=== PATIENT | female | born 1950 | race Caucasian/White ===

== ENCOUNTER → 2020-04-14 | Outpatient (CLI) | payer SELFPAY ==
[2020-04-14 12:53] LABS: Synovial Fld Mononuclear WBC % 49.9 %; Synovial Fld Polynuclear WBC # 0.951 10^3/uL; Synovial Fld Polynuclear WBC % 50.1 %
[2020-04-14 12:55] LABS: AUTO B FLUID DILUENT BKGD CT WBC <0.1 RBC <0.01 (W<.1,R<.01); RBC /Synovial Fluid 0.004 10^6/uL (0); Source / Synovial Fluid LEFT KNEE
[2020-04-14 12:56] LABS: Appearance /Synovial Fluid Sl Cl (CLEAR); Color / Synovial Fluid Yellow (Pale Yellow)
[2020-04-14 14:22] LABS: Lymph 52 %; Neutrophil 48 % (0-25)
[2020-04-14 14:23] LABS: Body Fluid QC Type(s) BF2Q
[2020-04-18 12:00] LABS: Pathologist Comment Reviewed
== END | disposition home or self-care (01) ==
LOC: LABSPEC 11:24
PROVIDERS: PCP Family Medicine; Referring Provider Specialist; Visit Provider Specialist
DX: T84.84XA Pain due to internal orthopedic prosthetic devices, implants and grafts, initial encounter (principal)
CPT/HCPCS: 87015; 87070; 87075; 87101; 87116; 87205; 87206; 89050; 89051

== ENCOUNTER 2020-04-27 14:00 | Outpatient (RCR) | payer SELFPAY ==
--- NOTE | 2020-04-01 14:22 | HP.PTEVAL ---
Patient's Visit Information CANDIDO MERIDA is a 70 year old F referred to Physical Therapy by Dr. Harsha Mendoza MD with a diagnosis of R knee OA. Date of Evaluation: 04/01/20 Physical Therapist: VASU Espino - Visit Plan Frequency: 2x /Week Duration: 4-6 Weeks Plan: Pt wants to do a few sessions on land to decrease her R knee pain before she tries the water therapy. 2X/ week for 4-6 weeks for R knee and hip strengthening, gait training, R HC and HS stretching with HEP and modalities if needed. Pt may move to the AT setting when she is ready for core stability, R knee and hip strengthening, gait training, strairs with HEP - Subjective Pt come in in a wheelchair. SHe reports that she has osteoporosis. She saw her Dr and they thought that she should do therapy to get her muscles loose. She was taking 3 naproxen and 3 Alieve pills a day. If she does not take those meds then she gets worse. She normally uses the walker if she stays on the pills. He did an x-ray of the R knee and will do one on April 12. Right now she is not walking much at all... about from the toilet to the shower. She does not do stairs and she has ramps. She has not been down to the cellar this year yet. Only pain she has is when she walks and the pain moves around. Sometimes it is the R and sometimes is is the L. She has occ tingling....She is sleeping ok but can not sleep on her tummy cause it will make her knees hurt. - Pain R knee pain Pain Intensity (Out of 10): 0 Pain Intensity Range: 6 L knee pain Pain Intensity (Out of 10): 0 Pain Intensity Range: 0 - Objective Pt struggles with rolling over due to back pain and cant do a bridge due to back pain. R knee AROM -2 degrees to 110 degrees R knee flexion. L knee AROM 0 degrees extension to 120 degrees L knee flexion. MMT R knee flex 4-/5 (pain), extension 4-/5 ( pain), R hip abd 4-/5, R hip flex 3+/5. MMT L knee flex 4/5, extension 4/5, R hip abd 4/5, R hip flex 4/5. Gait: Pt only took a few steps from the wheel chair to the mat table as she did not have her walker and she had increase R knee pain. - Goals Goal 1:: I HEP Goal Time Frame: 4-6 Weeks Goal 2:: Be able to walk 100 feet with least restrictive device with less than 2/10 R knee pain Goal Time Frame: 4-6 Weeks Goal 3:: Increase R knee strength to 4/5 knee flexion and extension and R hip abd Goal Time Frame: 4-6 Weeks Goal 4:: Decrease R knee pain to 2/10 with gait Goal Time Frame: 4-6 Weeks - Rehabilitation Potential Rehabilitation Potential: Good - Anticipated Interventions Patient/Client Instruction: Educate patient on: Condition, Plan of Care For the Purpose of:: To decrease pain, To increase ROM, To improve nutrient delivery to tissue, To improve muscle performance and motor function, To improve ability to perform ADL's, To increase tolerance to activity/condition/position, To improve performance and independence with ADL's, To improve ability of physical actions for home/community/work/leisure, To improve gait and locomotor functions, To improve health of tissue, To decrease soft tissue restriction, To increase flexibility/ROM, To improve balance, To improve safety with gait Therapeutic Exercise to Include: Strength training, Flexibilty training, Gait and locomotor training, Passive ROM, Active ROM, Dynamic Lumbar Stabilization For the Purpose of:: To decrease pain, To increase ROM, To improve nutrient delivery to tissue, To improve muscle performance and motor function, To improve ability to perform ADL's, To increase tolerance to activity/condition/position, To improve performance and independence with ADL's, To decrease level of supervision to perform tasks, To improve gait and locomotor functions, To improve health of tissue, To increase flexibility/ROM Functional Training to Include: Gait training For the Purpose of:: To decrease pain, To decrease swelling/inflammation, To increase ROM, To improve nutrient delivery to tissue, To improve muscle performance and motor function, To improve ability to perform ADL's, To increase tolerance to activity/condition/position, To improve performance and independence with ADL's IF ES: Yes Thermo therapy (hot pack): Yes Ultrasound (thermal/non thermal): Yes For the Purpose of:: To decrease pain, To increase ROM, To improve nutrient delivery to tissue Thank you for the opportunity to evaluate your patient. For Medicare and Medicare HMO plans, please review the plan of care and approve it. It will need to be FAXED BACK to us at [phone] for Medicare purposes. For Medicare only, by signing this I certify the plan of care. Please let me know if there are questions or concerns regarding this plan of care. Physician Signature: Date:
--- NOTE | 2020-08-10 11:42 | HP.PT.NRP ---
CANDIDO MERIDA was seen in my office for initial evaluation on 04/01/20. The following Plan of Care was established for this patient: Initial Frequency: 2x /Week Initial Duration: 4-6 Weeks Patient/Client Instruction: Educate patient on: Condition, Plan of Care For the Purpose of:: To decrease pain, To increase ROM, To improve nutrient delivery to tissue, To improve muscle performance and motor function, To improve ability to perform ADL's, To increase tolerance to activity/condition/position, To improve performance and independence with ADL's, To improve ability of physical actions for home/community/work/leisure, To improve gait and locomotor functions, To improve health of tissue, To decrease soft tissue restriction, To increase flexibility/ROM, To improve balance, To improve safety with gait Therapeutic Exercise to Include: Strength training, Flexibilty training, Gait and locomotor training, Passive ROM, Active ROM, Dynamic Lumbar Stabilization For the Purpose of:: To decrease pain, To increase ROM, To improve nutrient delivery to tissue, To improve muscle performance and motor function, To improve ability to perform ADL's, To increase tolerance to activity/condition/position, To improve performance and independence with ADL's, To decrease level of supervision to perform tasks, To improve gait and locomotor functions, To improve health of tissue, To increase flexibility/ROM Functional Training to Include: Gait training For the Purpose of:: To decrease pain, To decrease swelling/inflammation, To increase ROM, To improve nutrient delivery to tissue, To improve muscle performance and motor function, To improve ability to perform ADL's, To increase tolerance to activity/condition/position, To improve performance and independence with ADL's IF ES: Yes Thermo therapy (hot pack): Yes Ultrasound (thermal/non thermal): Yes For the Purpose of:: To decrease pain, To increase ROM, To improve nutrient delivery to tissue This patient was last seen in our office 04/27/20. Pertinent comments regarding their Physical therapy will appear below: [facility] PT At this point I will be discontinuing this patient from physical therapy. I would be happy to see this patient again in the future if found appropriate by the physician. Thank you! Ginger Fitzgerald, MPT
== END 2020-04-27 19:00 | disposition home or self-care (01) ==
LOC: PT 14:00
PROVIDERS: PCP Family Medicine; Referring Provider Specialist; Visit Provider Specialist
DX: M17.11 Unilateral primary osteoarthritis, right knee (principal); E66.8 Other obesity; Z68.41 Body mass index [BMI] 40.0-44.9, adult
CPT/HCPCS: 97014; 97035; 97110; 97113; 97161; G0283

== ENCOUNTER → 2020-05-18 10:00 | Outpatient (CLI) | payer SELFPAY ==
--- NOTE | 2020-05-18 10:05 | RAD_ITS ---
STUDY: X-RAY - LEFT SHOULDER REASON FOR EXAM: Female, 70 years old. inflammatory polyarthropathy TECHNIQUE: 4 view(s) of the shoulder. COMPARISON: None. FINDINGS: There is severe degenerative arthrosis of the glenohumeral articulation. Normal acromioclavicular joint. Normal acromion. Remote deformity of the proximal humerus. The soft tissue structures are unremarkable. Normal visualized pulmonary apex. A needle overlies the central chest. Soft tissue calcifications near the left lung apex. RAD/Shoulder min 2 Views IMPRESSION: No erosive lesions are seen. Remote left humerus deformity. Severe glenohumeral osteoarthritis. Electronically Signed: Jamar Mueller MD at 17:57 EDT Tel , Service support ,
--- NOTE | 2020-05-18 10:05 | RAD_ITS ---
STUDY: X-RAY - PELVIS REASON FOR EXAM: Female, 70 years old. inflammatory polyarthropathy TECHNIQUE: One view of the pelvis was obtained. COMPARISON: None. FINDINGS: There is a non-specific bowel gas pattern. Normal visualized soft tissue structures. Normal bilateral iliac wings, sacroiliac joints and visualized sacrum. Normal visualized bilateral superior and inferior pubic rami. Normal pubic symphysis. Normal ischial tuberosities. Moderate bilateral hip osteoarthritis. RAD/Pelvis 1 or 2 Views IMPRESSION: Moderate bilateral hip osteoarthritis. Electronically Signed: Jamar Mueller MD at 17:55 EDT Tel , Service support ,
[2020-05-18 12:45] LABS: Absolute Neutrophil Count 9.1 X10^3/uL (2.0-7.7); Basophil# 0.07 X10^3/uL; Basophil% 0.5 % (0-1); Eosinophil# 0.28 X10^3/uL; Eosinophils% 2.1 % (0-5); Hematocrit 42.1 % (37-47); Hemoglobin 13.8 g/dL (12.0-15.0); Lymphocyte % 21.3 % (19-41); Mean Corp Hgb Conc 32.8 g/dL (32-36); Mean Corpuscular Hgb 30.3 pg (27.0-32.0); Mean Corpuscular Volume 92.5 fL (81-99); Mean Platelet Vol. 10.3 fl (6.2-12.0); Monocyte# 0.86 X10^3/uL; Monocyte% 6.5 % (0-10); NRBC Flagged by Analyzer 0 % (0-5); Neutrophil # 9.07 X10^3/uL (2.7-7.7); Platelet Count 340 K/mm3 (150-450); RBC Distribution Width CV 12.8 % (11.6-14.6); RBC Distribution Width SD 42.8 fl (35.1-43.9); Red Blood Count 4.55 M/mm3 (4.2-5.4); White Blood Count 13.2 K/mm3 (4.4-11.0)
[2020-05-18 13:07] LABS: ALB/GLOB Ratio 0.7 RATIO (0.9-2.4); AST(SGOT) 30 U/L (15-37); Alanine Aminotransfer ALT/SGPT 25 U/L (13-56); Albumin, Serum 3.6 g/dL (3.2-5.0); Alkaline Phosphatase 123 U/L (45-117); Anion Gap 8 (5-15); BUN 35 mg/dL (7-18); BUN/Creat Ratio 32.4 RATIO (10-20); Calcium,Total 9.5 mg/dL (8.5-10.1); Chloride 105 mmol/L (98-107); Creatinine, Serum 1.08 mg/dL (0.55-1.02); EST Glomerular Filtration Rate 53 mL/min (>60); Est Glom Filt Rate - Afr Amer 65 mL/min (>60); Globulin 4.9 g/dL (2.2-4.2); Glucose 102 mg/dL (74-106); Potassium 3.9 mmol/L (3.5-5.1); Protein, Total 8.5 g/dL (6.4-8.2); Rheumatoid Factor < 10.0 IU/mL (<15); Sodium Level 138 mmol/L (136-145)
[2020-05-18 13:43] LABS: Hepatitis B Surface Antibody Non-Reactive; Hepatitis B Surface Antigen Non-Reactive (Nonreactive); Hepatitis C Antibody Non-Reactive (Nonreactive)
[2020-05-19 18:20] LABS: ANTINUCLEAR ANTIBODIES DIRECT Negative (Negative)
[2020-05-20 21:19] LABS: CCP IgG Antibodies 7 units (0-19); Hepatitis B Core AB IgM Negative (Negative)
== END ==
PROVIDERS: PCP Family Medicine; Referring Provider Internal Medicine Rheumatology; Visit Provider Internal Medicine Rheumatology
DX: M06.4 Inflammatory polyarthropathy (principal); M79.7 Fibromyalgia; M17.0 Bilateral primary osteoarthritis of knee; M47.897 Other spondylosis, lumbosacral region; M21.41 Flat foot [pes planus] (acquired), right foot; I87.2 Venous insufficiency (chronic) (peripheral); E66.01 Morbid (severe) obesity due to excess calories
CPT/HCPCS: 36415; 72170; 73030; 80053; 85025; 86038; 86200; 86431; 86705; 86706; 86803; 87340